=== PATIENT | female | born 1930 | race Caucasian/White ===

== ENCOUNTER 2017-11-20 17:44 | Emergency (ER) | payer OTHER ==
[2017-11-20 17:58] VITALS: BP 144/74; PULSE 70; TEMP 98.4; BMI 22.3
[2017-11-20] MEDS ORDERED: FAMOTIDINE IV 20 MG/12 ML VIAL IVPUSH ONE (18:27)
[2017-11-20] MEDS ORDERED: PANTOPRAZOLE SODIUM 40 MG VIAL IVPUSH ONE (18:27)
[2017-11-20] MEDS ORDERED: morphine CARPU-JECT 2 MG/1 ML DISP.SYRIN IVPUSH ONE (18:27)
[2017-11-20] MEDS ORDERED: SODIUM CHLORIDE 1,000 ML IV STA (18:27)
--- NOTE | 2017-11-20 18:27 | PDOC ---
History of Present Illness - General Chief Complaint: Psychiatric Stated Complaint: ANXIETY Time Seen by Provider: 11/20/17 18:26 History Source: Family - History of Present Illness Initial Comments: 11/20/17 19:29 87F pmh of depression/anxiety, who presents to the emergency department with daughter for agitation and complaint of burning to her abdomen. The daughter at bedside states her mother is very anxious and reportedly administered Paroxetine and buspirone this morning after having stopped these medications for 2 months. Family drama exacerbated symptoms of anxiety as per daughter. Patient had some food today which didn't change her symptoms either way. Patient does not stand or walk on her own because of a hip replacement and advanced OA. She denies chest pain, shortness of breath, headache and dizziness. She denies fever, chills, nausea, vomit, diarrhea and constipation. She denies dysuria, frequency, urgency and hematuria. Allergies: NKDA PCP: Dr. Gomez 11/20/17 19:33 Past History - Past Medical History Allergies/Adverse Reactions: Allergies Allergy/AdvReac Type Severity Reaction Status Date / Time No Known Allergies Allergy Verified 11/20/17 17:53 Home Medications: Ambulatory Orders Buspirone HCl [Buspar -] 5 mg PO DAILY 11/20/17 Omeprazole 20 mg PO BID PRN #30 capsule. 11/20/17 Paroxetine HCl 30 mg PO DAILY 11/20/17 COPD: No Psychiatric Problems: Yes (ANXIETY/DEPRESSION.) - Suicide/Smoking/Psychosocial Hx Smoking History: Never smoked Hx Alcohol Use: No Drug/Substance Use Hx: No Substance Use Type: None Review of Systems - Review of Systems Able to Perform ROS?: No *Physical Exam - Vital Signs Last Vital Signs Temp Pulse Resp BP Pulse Ox 98.4 F 70 2 L 144/74 100 11/20/17 17:54 11/20/17 17:54 11/20/17 17:54 11/20/17 17:54 11/20/17 17:54 - Physical Exam General Appearance: Yes: Appropriately Dressed, Moderate Distress, Thin HEENT: positive: EOMI, EDIN, Normal ENT Inspection Respiratory/Chest: positive: Lungs Clear, Normal Breath Sounds. negative: Chest Tender Cardiovascular: positive: Regular Rhythm, Regular Rate, S1, S2 Gastrointestinal/Abdominal: positive: Normal Bowel Sounds, Tender Extremity: positive: Normal Capillary Refill Neurologic: positive: Disoriented (anxious and screaming), Other ED Treatment Course - LABORATORY CBC & Chemistry Diagram: 11/20/17 18:46 11/20/17 18:46 Medical Decision Making - Medical Decision Making 11/20/17 19:34 Labs pending 11/20/17 20:29 Clean \UA: this was likely GERD and/or panic attack Ok to D/C *DC/Admit/Observation/Transfer Diagnosis at time of Disposition: GERD (gastroesophageal reflux disease) - Discharge Dispostion Disposition: HOME Admit: No - Referrals Referrals: Byrson Gomez MD [Primary Care Provider] - - Patient Instructions - Post Discharge Activity
[2017-11-20] MEDS ORDERED: FAMOTIDINE 20 MG/50 ML IVPB 20 MG/50 ML MG IVPB ONE (18:49)
[2017-11-20] MEDS ORDERED: morphine CARPU-JECT 10 MG/1 ML DISP.SYRIN ONE (18:49)
[2017-11-20] MEDS ORDERED: PANTOPRAZOLE SODIUM 40 MG VIAL ONE (18:49)
--- NOTE | 2017-11-20 18:53 | PDOC ---
Attending Attestation - Resident Resident Name: Pepe English - ED Attending Attestation I have performed the following: I have examined & evaluated the patient, The case was reviewed & discussed with the resident, I agree w/resident's findings & plan, Exceptions are as noted - HPI HPI: 11/20/17 18:30 A portion of this note was documented by scribe services under my direction. I have reviewed the details of the note, within reason, and agree with the documentation with the following case summary and management plan written by me. Patient treated in the ED. Nursing notes are reviewed and incorporated into the medical decision-making. Vital signs reviewed. Peripheral IV access obtained by the nurse, laboratory studies are drawn and sent, reviewed and interpreted by myself. Vital Signs Temp Pulse Resp BP Pulse Ox 98.4 F 70 2 L 144/74 100 11/20/17 17:54 11/20/17 17:54 11/20/17 17:54 11/20/17 17:54 11/20/17 17:54 - Medical Decision Making 11/20/17 18:53 A portion of this note was written by my scribe, under my supervision. Vital Signs Temp Pulse Resp BP Pulse Ox 98.4 F 70 2 L 144/74 100 11/20/17 17:54 11/20/17 17:54 11/20/17 17:54 11/20/17 17:54 11/20/17 17:54 87-year-old female with past medical history of anxiety, prior urinary tract infections presents to the emergency department for anxiety and burning-like sensation in her lower abdomen. The patient was in her usual state of health yesterday. Noted today, that the patient was developing some epigastric and suprapubic discomfort. The patient daughter reports that she is typically alert and oriented but has become much more anxious since because of her discomfort. She denies any abdominal tenderness but reports burning-like sensation. Unclear if it's related to food. Patient's daughter had given the patient Tylenol with little relief. Denies fevers or chills or nausea or vomiting. Denies chest pain or shortness of breath. The burning-like sensation may potentially be gastritis or GERD or a urinary tract infection. The patient's abdomen is nontender. We'll obtain blood work including urinalysis and trial GERD-like medications. We'll reassess. At this point, I do not suspect appendicitis or other acute bowel pathology at this moment. <Alvin Simmons - Last Filed: 11/20/17 18:53> - HPI HPI: 11/20/17 18:55 The patient is a 87 year old female, Dominican speaking, with a significant past medical history of depression/anxiety, who presents to the emergency department with daughter for complaint of burning to her abdomen. The daughter at bedside states her mother is very anxious and reportedly administered 30mg of Paroxetine this morning after having stopped this medication for 2 months. The daughter states her mother continued to complain of burning and has become increasingly more anxious as the day progressed. The patients daughter reportedly gave one extra strength Tylenol which offered the patient little to no relief. The daughter strongly believes this is a UTI. The daughter reports the patient ate clam chowder soup and a bagel today which did not alleviate or exacerbate her symptoms. The daughter states the patient is not confused at this time. Secondarily, the daughter states her mother does not stand or walk on her own because of a hip replacement and advanced OA. She denies chest pain, shortness of breath, headache and dizziness. She denies fever, chills, nausea, vomit, diarrhea and constipation. She denies dysuria, frequency, urgency and hematuria. Allergies: NKDA PCP: Dr. Gomez - Physicial Exam PE: 11/20/17 18:55 GENERAL: (+) anxious appearing. Awake, alert, and fully oriented, in no acute distress HEAD: No signs of trauma EYES: PERRLA, EOMI, sclera anicteric, conjunctiva clear ENT: Auricles normal inspection, hearing grossly normal, nares patent, oropharynx clear without exudates. Moist mucosa NECK: Normal ROM, supple, no lymphadenopathy, JVD, or masses LUNGS: Breath sounds equal, clear to auscultation bilaterally. No wheezes, and no crackles HEART: Regular rate and rhythm, normal S1 and S2, no murmurs, rubs or gallops ABDOMEN: Soft, nontender, normoactive bowel sounds. No guarding, no rebound. No masses EXTREMITIES: Normal range of motion, no edema. No clubbing or cyanosis. No cords, erythema, or tenderness NEUROLOGICAL: Cranial nerves II-XII intact. Normal speech, Sensation intact in upper and lower extremities. 5/5 motor strength in upper and lower extremities. No pronator drift. Finger to nose intact. Rapid alternations intact. SKIN: Warm, Dry, normal turgor, no rashes or lesions noted. - Medical Decision Making 11/20/17 18:56 Documentation prepared by Christiana Archibald, acting as medical scheduler for Alvin Simmons MD, <Christiana Archibald - Last Filed: 11/20/17 18:56>
[2017-11-20 19:03] LABS: BASO % 0.4 % (0-2.0); EOS % 0.8 % (0-4.5); HEMOGLOBIN 11.7 GM/dL (10.7-15.3); LYMPH % 39.8 % (8-40); MCH 29.2 pg (25.7-33.7); MCHC 33.3 g/dl (32.0-36.0); MEAN CELL VOLUME 87.5 fl (80-96); MEAN PLT VOLUME 10.3 fl (7.5-11.1); MONO % 7.6 % (3.8-10.2); NEUT % 51.4 % (42.8-82.8); PLATELET COUNT 149 K/MM3 (134-434); WHITE BLOOD COUNT 6.2 K/mm3 (4.0-10.0)
--- NOTE | 2017-11-20 19:23 | PDOC ---
*Physical Exam - Vital Signs Last Vital Signs Temp Pulse Resp BP Pulse Ox 98.4 F 70 2 L 144/74 100 11/20/17 17:54 11/20/17 17:54 11/20/17 17:54 11/20/17 17:54 11/20/17 17:54 ED Treatment Course - LABORATORY CBC & Chemistry Diagram: 11/20/17 18:46 11/20/17 18:46 - ADDITIONAL ORDERS Additional order review: 11/20/17 18:46 RBC 4.00 MCV 87.5 MCHC 33.3 RDW 14.0 MPV 10.3 Neutrophils % 51.4 Lymphocytes % 39.8 Monocytes % 7.6 Eosinophils % 0.8 Basophils % 0.4 - Medications Given in the ED: ED Medications Discontinued Medications Generic Name Dose Route Start Last Admin Trade Name Freq PRN Reason Stop Dose Admin Famotidine 20 mg in 12 mls @ 144 mls/hr 11/20/17 18:27 11/20/17 19:01 Pepcid 20 Mg/12 Ml Push IVPUSH 11/20/17 18:31 144 mls/hr ONCE ONE Administration Morphine Sulfate 2 mg 11/20/17 18:27 11/20/17 18:57 Morphine Injection - IVPUSH 11/20/17 18:28 2 mg ONCE ONE Administration Pantoprazole Sodium 40 mg 11/20/17 18:27 11/20/17 18:55 Protonix Iv IVPUSH 11/20/17 18:28 40 mg ONCE ONE Administration Medical Decision Making - Medical Decision Making 11/20/17 19:23 Pt signed out to me. Comes with anxiety; LBB on EKG; no old EKG to compare it to. 11/20/17 19:54 labs all normal; CXR looks clear. Awaiting UA. Pt's vitals are stable 11/20/17 20:30 UA is clean Pt will be discharged *DC/Admit/Observation/Transfer Diagnosis at time of Disposition: GERD (gastroesophageal reflux disease) - Discharge Dispostion Disposition: HOME Condition at time of disposition: Good - Prescriptions Prescriptions: Omeprazole 20 mg PO BID PRN #30 capsule.dr MORA Reason: Dyspepsia - Referrals Referrals: Bryson Gomez MD [Primary Care Provider] - - Patient Instructions - Post Discharge Activity
[2017-11-20 19:25] LABS: ALBUMIN 3.4 g/dl (3.4-5.0); ANION GAP 7 (8-16); BILIRUBIN,TOTAL 0.3 mg/dL (0.2-1.0); BLOOD UREA NITROGEN 25 mg/dL (7-18); CALCIUM 8.8 mg/dL (8.5-10.1); CHLORIDE 110 mmol/L (98-107); CO2 26 mmol/L (21-32); CREATININE 1.2 mg/dL (0.55-1.02); GLUCOSE,RANDOM 81 mg/dL (74-106); POTASSIUM 4.8 mmol/L (3.5-5.1); SGOT/AST 23 U/L (15-37); SGPT/ALT 19 U/L (12-78); SODIUM 143 mmol/L (136-145)
[2017-11-20 19:27] LABS: ALK PHOS 101 U/L (45-117)
[2017-11-20 19:32] LABS: LIPASE 225 U/L (73-393)
[2017-11-20 20:00] LABS: URINE APPEARANCE CLEAR; URINE BILIRUBIN NEGATIVE (NEGATIVE); URINE BLOOD NEGATIVE (NEGATIVE); URINE COLOR STRAW; URINE GLUCOSE (UA) NEGATIVE (NEGATIVE); URINE KETONE NEGATIVE (NEGATIVE); URINE LEUK ESTERASE NEGATIVE (NEGATIVE); URINE NITRITE NEGATIVE (NEGATIVE); URINE PROTEIN NEGATIVE (NEGATIVE); URINE UROBILINOGEN NEGATIVE mg/dL (0.2-1.0)
--- NOTE | 2017-11-22 11:41 | EKG ---
Test Reason : Blood Pressure : / mmHG Vent. Rate : 067 BPM Atrial Rate : 067 BPM P-R Int : 150 ms QRS Dur : 122 ms QT Int : 436 ms P-R-T Axes : 072 -48 098 degrees QTc Int : 460 ms POOR DATA QUALITY, INTERPRETATION MAY BE ADVERSELY AFFECTED SINUS RHYTHM WITH OCCASIONAL PREMATURE VENTRICULAR COMPLEXES LEFT AXIS DEVIATION LEFT BUNDLE BRANCH BLOCK ABNORMAL ECG WHEN COMPARED WITH ECG OF 30-OCT-2000 11:21, PREMATURE VENTRICULAR COMPLEXES ARE NOW PRESENT LEFT BUNDLE BRANCH BLOCK IS NOW PRESENT MINIMAL CRITERIA FOR SEPTAL INFARCT ARE NO LONGER PRESENT Confirmed by BERENICE GALLAGHER MD ([id number]) on 11/22/2017 11:41:45 AM Referred By: Confirmed By:BERENICE GALLAGHER MD
== END 2017-11-20 21:41 | disposition home or self-care (01) ==
LOC: JER 17:44 → SUPCPDRO 17:44 → JER 21:41
PROC: 3E033NZ Introduction of Analgesics, Hypnotics, Sedatives into Peripheral Vein, Percutaneous Approach (ICD-10-PCS; principal; 2017-11-20)
PROC: 3E033GC Introduction of Other Therapeutic Substance into Peripheral Vein, Percutaneous Approach (ICD-10-PCS; 2017-11-20)
PROC: 3E033GC Introduction of Other Therapeutic Substance into Peripheral Vein, Percutaneous Approach (ICD-10-PCS; 2017-11-20)
DX: K21.9 Gastro-esophageal reflux disease without esophagitis (principal); F41.9 Anxiety disorder, unspecified
CPT/HCPCS: 36415; 71045-TC; 80053; 81003; 82550; 83690; 84484; 85025; 87086; 93005; 93010; 96374; 96375; 99285-25